=== PATIENT | male | born 2000 | race Caucasian/White ===

== ENCOUNTER 2023-04-22 00:56 | Emergency (ER) | payer OTHER ==
[~2023-04-22] VITALS: Ht 185.4 cm; Wt 87.9 kg
[2023-04-22] MEDS ORDERED: ISOVUE-370 76% 100ML VIAL As Ordered ONE (01:10)
[2023-04-22] MEDS ORDERED: NS 1,000 ML IV ONE (01:10)
[2023-04-22] MEDS ORDERED: UNRESOLVED CLARIFICATION ENTRY XX STA (01:16)
[2023-04-22 01:31] LABS: BASO # 0.1 10^3/uL (0.0-0.2); BASO % 0.6 % (0.0-1.0); EOS # 0.1 10^3/uL (0.0-0.5); EOS % 0.4 % (0.0-3.0); HEMATOCRIT 50.2 % (42.0-52.0); HEMOGLOBIN 17.2 g/dl (13.5-17.5); LYMPH % 29.6 % (24.0-44.0); MEAN CORPUSCULAR HEMOGLOBIN 31.9 pg (27.0-33.0); MEAN CORPUSCULAR HGB CONC 34.3 g/dl (32.0-36.5); MEAN CORPUSCULAR VOLUME 93.1 fl (80.0-96.0); MONO # 1.4 10^3/uL (0.0-0.8); MONO % 7.1 % (2.0-8.0); NEUTROPHILS # 12.2 10^3/uL (1.5-8.5); PLATELET COUNT, AUTOMATED 231 10^3/uL (150-450); RED BLOOD COUNT 5.39 10^6/uL (4.30-6.10); WHITE BLOOD COUNT 20.1 10^3/uL (4.0-10.0)
[2023-04-22 01:40] LABS: PROTHROMBIN TIME 13.4 SECONDS (12.5-14.5)
[2023-04-22 01:44] LABS: AMPHETAMINES LEVEL URINE NEGATIVE (NEGATIVE); BARBITURATES URINE NEGATIVE (NEGATIVE); COCAINE METABOLITE URINE NEGATIVE (NEGATIVE); METHADONE URINE NEGATIVE (NEGATIVE)
[2023-04-22 01:45] LABS: CANNABINOIDS URINE NEGATIVE (NEGATIVE); OPIATES URINE NEGATIVE (NEGATIVE); PHENCYCLIDINE URINE NEGATIVE (NEGATIVE)
[2023-04-22 01:46] LABS: ETHYL ALCOHOL (ETHANOL) 0.004 % (0.000-0.010); LIPASE 36 U/L (12-53)
[2023-04-22 01:48] LABS: ALBUMIN 4.5 G/DL (3.2-5.2); ALKALINE PHOSPHATASE 74 U/L (46-116); ALT/SGPT 91 U/L (7.0-40); AMYLASE 61 U/L (30-118); AST/SGOT 107 U/L (<34); BILIRUBIN,DIRECT 0.4 MG/DL (<0.4); BILIRUBIN,TOTAL 1.5 MG/DL (0.3-1.2); BLOOD UREA NITROGEN 24 MG/DL (9-23); CALCIUM LEVEL 8.9 MG/DL (8.5-10.1); CARBON DIOXIDE LEVEL 22 MMOL/L (20-31); CHLORIDE LEVEL 103 MMOL/L (98-107); CK-MB VALUE MASS 2.1 NG/ML (<3.6); CREATININE FOR GFR 1.04 MG/DL (0.70-1.30); GLOMERULAR FILTRATION RATE > 60.0 (>60); GLUCOSE, FASTING 166 MG/DL (60-100); POTASSIUM SERUM 3.6 MMOL/L (3.5-5.1); SODIUM LEVEL 138 MMOL/L (136-145); TOTAL PROTEIN 7.4 G/DL (5.7-8.2)
[2023-04-22 01:49] LABS: ABG BASE EXCESS -4.2 (-2.0-2.0); ABG O2 SATURATION 97.4 % (95.0-99.0); ABG PARTIAL PRESSURE O2 107.6 mmHg (75.0-100.0); ABG TOTAL CO2 24.6 MMOL/L (22.0-29.0); ABG pH (ARTERIAL) 7.281 UNITS (7.350-7.450)
[2023-04-22 01:53] LABS: BENZODIAZEPINES URINE POSITIVE (NEGATIVE)
[2023-04-22 01:53] LABS: CPK CREATINE PHOSPHOKINASE 320 U/L (46-171); MB/CK RELATIVE INDEX 0.65 (< OR =4)
[2023-04-22 01:55] LABS: APPEARANCE, URINE CLOUDY (CLEAR); BACTERIA, URINE AUTO NEGATIVE (NEGATIVE); BILIRUBIN, URINE AUTO NEGATIVE (NEGATIVE); BLOOD, URINE BLOOD 3+ (NEGATIVE); COLOR, URINE AMBER (YELLOW); GLUCOSE, URINE (UA) AUTO 1+ mg/dL (NEGATIVE); GRANULAR CAST, URINE AUTO 66 /LPF; KETONE, URINE AUTO TRACE mg/dL (NEGATIVE); LEUKOCYTE ESTERASE, URINE AUTO NEGATIVE (NEGATIVE); MUCUS, URINE SMALL (NEGATIVE); NITRITE, URINE AUTO NEGATIVE (NEGATIVE); PROTEIN, URINE AUTO 3+ mg/dL (NEGATIVE); RBC, URINE AUTO TNTC /HPF (0-3); SPECIFIC GRAVITY URINE AUTO 1.031 (1.002-1.035); SQUAMOUS EPITHELIAL CELL UR AU 3 /HPF (0-6); UROBILINOGEN, URINE AUTO 0.2 mg/dL (0.0-2.0); WBC, URINE AUTO TNTC /HPF (0-3)
[2023-04-22] MEDS ORDERED: propofoL 1,000 MG in IV 1 EA IV SCH (02:00)
[2023-04-22] MEDS ORDERED: ETOMIDATE INJ 20MG/10ML VIAL IV ONE (02:00)
[2023-04-22] MEDS ORDERED: MIDAZOLAM 100MG/100ML-0.9%NACL 100 MG in IV 1 EA IV SCH (02:00)
[2023-04-22] MEDS ORDERED: ROCURONIUM BROMIDE 50MG/5ML VIAL IV ONE (02:00)
[2023-04-22] MEDS ORDERED: ROCURONIUM BROMIDE 50MG/5ML VIAL IV PRN (02:00)
[2023-04-22] MEDS ORDERED: ceFAZolin SOD 2 GM in IV 1 EA IV ONE (02:50)
[2023-04-22] MEDS ORDERED: BOOSTRIX VACCINE (TETANUS/DIPHTH/ACEL. PERTUSSIS) 0.5ML SYR IM ONE (02:50)
[2023-04-22 03:00] VITALS: TEMP 98.7
[2023-04-22] MEDS ORDERED: PROPOFOL 1,000 MG/100 ML VIAL As Ordered ONE (03:16)
[2023-04-22 04:15] VITALS: BP 106/51; O2SAT 98
== END 2023-04-22 04:26 | disposition short-term general hospital (02) ==
LOC: EDBD 00:56 → M ED 00:56
DX: S06.6X9A Traumatic subarachnoid hemorrhage with loss of consciousness of unspecified duration, initial encounter (principal); S27.322A Contusion of lung, bilateral, initial encounter; S21.111A Laceration without foreign body of right front wall of thorax without penetration into thoracic cavity, initial encounter; S82.002A Unspecified fracture of left patella, initial encounter for closed fracture; S52.351A Displaced comminuted fracture of shaft of radius, right arm, initial encounter for closed fracture; S32.039A Unspecified fracture of third lumbar vertebra, initial encounter for closed fracture; V23.49XA Other motorcycle driver injured in collision with car, pick-up truck or van in traffic accident, initial encounter; Y92.410 Unspecified street and highway as the place of occurrence of the external cause; Y93.89 Activity, other specified; Y99.8 Other external cause status
CPT/HCPCS: 31500; 36600; 70450; 70486; 71045; 71260; 72125; 72128; 72131; 72170; 73060; 73090; 73552; 73590; 74177; 80047; 80048; 80076; 80307; 81001; 82077; 82150; 82550; 82553; 82803; 83605; 83690; 84484; 85025; 85610; 85730; 86850; 86900; 86901; 86920; 87635; 90715; 93005; 93041; 94760; 96365; 96366; 96367; 99285; J0690; J2250; Q9967